=== PATIENT | female | born 1995 | race Caucasian/White ===

== ENCOUNTER 2016-10-21 16:27 | Emergency (ER) | payer OTHER ==
--- NOTE | 2016-10-21 17:57 | ED Physician Documentation ---
Abdominal Pain - HISTORIAN Historian: patient - HPI Chief Complaint: Abdominal Pain Additonal Information: PT 18 wks pg rt uq and rt upper flank pain ext rlq abd onset noon hx . has appt w/ob sunday- recent exac chronic constipation w. no bm for 2-3 days- hard bm then. no ut cramps or discharge--ua out put ok w/o pain or blood bms hard but normal color. ua = ok Onset: other (NOON) Duration: waxing, waning Timing: still present Context: denies: out of country travel, bad food Severity: moderate Quality: pain, cramping Associated Symptoms: none Further Comments: yes (this is the 3rd preg) - ROS CONST: no problems GI/: constipation. denies: bloody urine, bloody stools CVS/RESP: none EYES/ENT: none MS/SKIN/LYMPH: none - SOCIAL HX Smoking History: cigarettes Alcohol Use: none Drug Use: none - FAMILY HX Family History: no significant history - PAST HX Past History: other ([facility]) Other History: none (prev ) Surgeries/Procedures: Home Medications: Ambulatory Orders Medication Instructions Recorded Fluticasone Propionate [Flonase 1 spray NS DAILY #1 bottle 07/22/16 Nasal [place]] Loratadine [Claritin] 10 mg PO DAILY #30 tablet 07/22/16 Allergies/Adverse Reactions: Allergies Allergy/AdvReac Type Severity Reaction Status Date / Time latex [Latex] Allergy Intermediate Blister Verified 07/22/16 11:07 [place] Juice Allergy Severe Hives Uncoded 07/22/16 11:07 - VITAL SIGNS Vital Signs: Vital Signs Temp Pulse Resp BP Pulse Ox 117/58 07/22/16 11:20 - REVIEWED ASSESSMENTS Nursing Assessment Reviewed: Yes Vitals Reviewed: Yes ED Results Lab/Radiology - Orders Orders: ED Orders Category Date Time Status UA [URINALYSIS] Routine Lab 10/21/16 Ordered Abdominal Pain Physical Exam - Physical Exam General Appearance: mild distress EENT: eye inspection normal NECK: normal inspection RESPIRATORY: no resp distress, chest non-tender, breath sounds normal CVS: reg rate & rhythm, heart sounds normal ABDOMEN: soft. No: non-tender (slight ruq-no guarding) BACK: normal inspection SKIN: warm/dry, normal color. No: cyanosis, diaphoresis, jaundice EXTREMITIES: non-tender, normal range of motion NEURO: oriented X3, motor nml, sensation nml, mood/affect nml Vital Signs: Vital Signs Temp Pulse Resp BP Pulse Ox 117/58 07/22/16 11:20 Discharge Clincal Impression: un diagnosed abd pain, hx recurrent constipation, hx 18 weeks -has OB Home Medications: Ambulatory Orders Fluticasone Propionate [Flonase Nasal [place]] 1 spray NS DAILY #1 bottle Loratadine [Claritin] 10 mg PO DAILY #30 tablet 07/22/16 Condition: Good Disposition: 01 HOME, SELF-CARE Decision to Admit: NO Decision Time: 18:02
[2016-10-21 18:11] VITALS: BP 108/65
[2016-10-22 05:40] LABS: APPEARANCE,URINE CLEAR (CLEAR); COLOR,URINE YELLOW (YELLOW); OCCULT BLOOD,URINE NEGATIVE (NEGATIVE); UROBILINOGEN URINE 0.2 Eu (0.2-1.0)
== END 2016-10-21 16:58 | disposition home or self-care (01) ==
LOC: ED 16:27
DX: R10.9 Unspecified abdominal pain (principal); Z33.1 Pregnant state, incidental
CPT/HCPCS: 81002; 99282

== ENCOUNTER 2016-11-03 10:24 | Emergency (ER) | payer OTHER ==
--- NOTE | 2016-11-03 10:44 | ED Physician Documentation ---
General Adult - HISTORIAN Historian: patient - HPI Stated Complaint: cough, nausea, diarrhea, Chief Complaint: General Adult Onset: days ago (3) Timing: still present Severity: moderate Further Comments: yes (Pt is a 21 yo female at 20 and 4/7 weeks, who c/ o cough x 1 week, and with fever and diarrhea that began yesterday. Pt has had no vag discharge or vag fluid; feels good movement.) - ROS CONST: fever, chills, other (malaize) EYES/ENT: sore throat, other (cough) CVS/RESP: none GI/: nausea MS/SKIN/LYMPH: none NEURO/PSYCH: headache - PAST HX Past History: other ( x 4) Surgeries/Procedures: Allergies/Adverse Reactions: Allergies Allergy/AdvReac Type Severity Reaction Status Date / Time latex [Latex] Allergy Intermediate Blister Verified 10/21/16 18:02 [place] Juice Allergy Severe Hives Uncoded 10/21/16 18:02 Home Medications: Ambulatory Orders Medication Instructions Recorded Penicillin V Potassium [Pen V K] 500 mg PO Q12H #20 tablet 11/03/16 - SOCIAL HX Smoking History: cigarettes - FAMILY HX Family History: No - VITAL SIGNS Vital Signs: Vital Signs Temp Pulse Resp BP Pulse Ox 108/65 10/21/16 18:05 - REVIEWED ASSESSMENTS Nursing Assessment Reviewed: Yes Vitals Reviewed: Yes Progress - Progress Progress: Rapid Strep - pos Inf A & B - neg Rx Penicillin VK 500 mg. Take one tablet by mouth every 12 hrs for 10 days. General Adult Physical Exam - PHYSICAL EXAM GENERAL APPEARANCE: mild distress EENT: eye inspection normal, pharyngeal erythema NECK: normal inspection, supple RESPIRATORY: no resp distress, chest non-tender, breath sounds normal CVS: reg rate & rhythm, heart sounds normal ABDOMEN: soft, no organomegaly, normal bowel sounds, other (gravid) BACK: normal inspection, no CVA tenderness SKIN: warm/dry, normal color EXTREMITIES: non-tender, normal range of motion, no evidence of injury NEURO: oriented X3, motor nml, sensation nml Discharge Clincal Impression: Strep pharyngitis Diarrhea Qualifiers: Diarrhea type: unspecified type Qualified Code(s): R19.7 - Diarrhea, unspecified Prescriptions: Penicillin V Potassium [Pen V K] 500 mg PO Q12H #20 tablet Referrals: Primary Doctor,No [Primary Care Provider] - Home Medications: Ambulatory Orders Penicillin V Potassium [Pen V K] 500 mg PO Q12H #20 tablet 11/03/16 Condition: Good Decision to Admit: NO Decision Time: 12:11
[2016-11-03] MEDS ORDERED: ONDANSETRON HCL/PF 4 MG/ 2ML VIAL IVP ONE (10:45)
[2016-11-03] MEDS ORDERED: 0.9 % SODIUM CHLORIDE 1,000 ML IV ONE (10:45)
[2016-11-03 10:58] LABS: BASOPHILS % 0.1 (0.0-1.5); EOSINOPHILS % 0.9 % (0.0-6.8); LYMPHOCYTES # 1.7 # k/uL (0.6-4.0); MEAN CORPUSCULAR HEMOGLOBIN 30.6 pg (28.0-34.0); MONOCYTES # 0.2 # k/uL (0.0-0.9); MONOCYTES % 2.1 % (0.0-11.0); NEUTROPHILS # 9.3 # k/uL (1.4-7.7)
[2016-11-03 11:16] LABS: eGFR (African) > 60; eGFR (Non-African) > 60
[2016-11-03 11:58] LABS: APPEARANCE,URINE Clear (CLEAR); COLOR,URINE Yellow (YELLOW); OCCULT BLOOD,URINE Negative (NEGATIVE); UROBILINOGEN URINE 0.2 Eu (0.2-1.0)
[2016-11-03 12:40] VITALS: BP 97/64
== END 2016-11-03 12:20 | disposition home or self-care (01) ==
LOC: ED 10:24
DX: J02.0 Streptococcal pharyngitis (principal); F17.210 Nicotine dependence, cigarettes, uncomplicated; R19.7 Diarrhea, unspecified; Z33.1 Pregnant state, incidental
CPT/HCPCS: 80053; 81002; 85025; 87400; 87880; J2405; J7030; 99282; S1016

== ENCOUNTER 2016-12-04 18:14 | Emergency (ER) | payer OTHER ==
[2016-12-04 23:02] VITALS: BP 101/62
== END 2016-12-04 19:06 ==
LOC: ED 18:14
DX: R05 Cough (principal); R11.2 Nausea with vomiting, unspecified
CPT/HCPCS: 99281

== ENCOUNTER 2017-05-04 08:50 | Emergency (ER) | payer OTHER ==
--- NOTE | 2017-05-04 09:11 | ED Physician Documentation ---
General Adult - HISTORIAN Historian: patient - HPI Stated Complaint: diarrhea this am Chief Complaint: General Adult Onset: hours (4 hours) Timing: still present Severity: moderate Further Comments: yes (Started to have some diarrhea this AM. no blood, no cramping, mild nausea and vomited once. No fever or chills noed. Denies .) - ROS CONST: denies: fever, chills GI/: vomiting, nausea, diarrhea. denies: black stools - PAST HX Past History: other (depression) Surgeries/Procedures: Immunizations: referred to PCP Allergies/Adverse Reactions: Allergies Allergy/AdvReac Type Severity Reaction Status Date / Time latex [Latex] Allergy Intermediate Blister Verified 05/04/17 09:06 [place] Juice Allergy Severe Hives Uncoded 05/04/17 09:06 Home Medications: Ambulatory Orders Medication Instructions Recorded Sertraline HCl [Zoloft] 50 mg PO DAILY 05/04/17 - SOCIAL HX Smoking History: greater than 1 pack/day Alcohol Use: rarely Drug Use: none - FAMILY HX Family History: No - VITAL SIGNS Vital Signs: Vital Signs Temp Pulse Resp BP Pulse Ox 101/62 12/04/16 18:14 - REVIEWED ASSESSMENTS Nursing Assessment Reviewed: Yes Vitals Reviewed: Yes General Adult Physical Exam - PHYSICAL EXAM GENERAL APPEARANCE: no distress EENT: ENT inspection normal, no signs of dehydration NECK: normal inspection, thyroid normal, supple RESPIRATORY: no resp distress, chest non-tender, breath sounds normal. No: wheezes, rales, rhonchi CVS: reg rate & rhythm, heart sounds normal, equal pulses ABDOMEN: soft, no organomegaly, normal bowel sounds, no abdominal bruit. No: tenderness, hepatomegaly BACK: normal inspection, no CVA tenderness SKIN: warm/dry, normal color EXTREMITIES: non-tender NEURO: oriented X3, mood/affect nml Discharge Clincal Impression: Diarrhea Qualifiers: Diarrhea type: infectious Qualified Code(s): A09 - Infectious gastroenteritis and colitis, unspecified Referrals: Primary Doctor,No [Primary Care Provider] - 2 Days Additional Instructions: Drink lot of fluids. Avoid dairy products for the next 24-48 hours. Watch for any blood in the stools or emisis. Home Medications: Ambulatory Orders Sertraline HCl [Zoloft] 50 mg PO DAILY 05/04/17 Condition: Stable Disposition: 01 HOME, SELF-CARE Decision to Admit: NO Date of Decison to Admit: 05/04/17 Decision Time: 09:17
== END 2017-05-04 09:28 | disposition home or self-care (01) ==
LOC: ED 08:50
DX: A09 Infectious gastroenteritis and colitis, unspecified (principal)
CPT/HCPCS: 99283

== ENCOUNTER 2017-05-12 14:15 | Emergency (ER) | payer OTHER ==
--- NOTE | 2017-05-12 15:08 | ED Physician Documentation ---
Female Urogenital Problems - HISTORIAN Historian: patient - HPI Stated Complaint: STD check Chief Complaint: Female Urogenital Problems Additional Information: 9wks pos---found boyfriend has had other sex, concerned re STD wants checked. has had brownish to yellow and clear discharge. no sig pain or cramping Onset: other (last sex 5 days ago) Severity: mild, moderate Location of Pain: pelvic pain. denies: vulvar pain - Vaginal Bleeding Compared to Menstrual Periods: heavier (4) : 4 Para: 4 Sexual History: active - Associated Symptoms Urinary Symptoms: none Discharge: vaginal discharge - ROS CONST: no problems CVS/RESP: none EYES/ENT: none NEURO/PSYCH: none MS/SKIN/LYMPH: none - PAST HX Past History: other (all preg c-sect) Other History: none Surgeries/Procedures: none Allergies/Adverse Reactions: Allergies Allergy/AdvReac Type Severity Reaction Status Date / Time latex [Latex] Allergy Intermediate Blister Verified 05/12/17 14:43 [place] Juice Allergy Severe Hives Uncoded 05/12/17 14:43 Home Medications: Ambulatory Orders Medication Instructions Recorded Sertraline HCl [Zoloft] 50 mg PO DAILY 05/04/17 - SOCIAL HX Smoking History: greater than 1 pack/day Alcohol Use: rarely Drug Use: none - FAMILY HX Family History: none - VITAL SIGNS Vital Signs: Vital Signs Temp Pulse Resp BP Pulse Ox 98.4 F 85 15 112/79 98 05/12/17 14:44 05/12/17 14:44 05/12/17 14:44 05/12/17 14:44 05/12/17 14:44 - REVIEWED ASSESSMENTS Nursing Assessment Reviewed: Yes Vitals Reviewed: Yes Female Urogenital Problems - EXAM General Appearance: mild distress, anxious EENT: eye inspection normal Neck: nml inspection Respiratory: no resp. distress, breath sounds nml CVS: reg rate & rhythm, heart sounds normal Pelvic: external exam nml, speculum exam nml, vaginal discharge, adnexal tenderness (R), adnexal tenderness (L) (slight both sides uterus anteverted). No: herpes-like ulcerations, active bleeding Back: non-tender Skin: color nml, no rash Extremities: non-tender Neuro: oriented X3, CN's nml as tested, motor nml, sensation nml, mood/affect nml, depressed mood/affect Discharge Clincal Impression: vaginal discharge, concern poss STD Referrals: Primary Doctor,No [Primary Care Provider] - 2 Days Home Medications: Ambulatory Orders Sertraline HCl [Zoloft] 50 mg PO DAILY 05/04/17 Comments: PT TOLD TAKES 32-4 DAYS FOR LAB RESULTS Condition: Good Disposition: 01 HOME, SELF-CARE Decision to Admit: NO Decision Time: 15:17
[2017-05-12 15:24] VITALS: BP 107/71
== END 2017-05-12 15:22 | disposition home or self-care (01) ==
LOC: ED 14:15
DX: N89.8 Other specified noninflammatory disorders of vagina (principal)
CPT/HCPCS: 87210; 87491; 87591; 99283